=== PATIENT | female | born 1975 | race Caucasian/White ===

== ENCOUNTER → 2019-08-20 06:53 | Outpatient (CLI) | payer OTHER, SELFPAY ==
--- NOTE | 2019-08-20 | DI.RAD.S_ITS ---
PROCEDURE: XR CERVICAL SPINE 2V OR 3V INDICATIONS: NECK PAIN TECHNIQUE: 3 view(s) of the cervical spine were acquired. COMPARISON: [facility], CR, XR THORACIC SPINE 2V, 08/20/2019, 7:57. FINDINGS: Bones: No fractures or dislocations to the T1 level. The lateral masses of C1 appear intact on the odontoid view. No suspicious bony lesions. There is mild degenerative disc disease at C5-6 with small anterior and posterior projecting osteophytes, without subluxation. Soft tissues: No prevertebral soft tissue swelling. IMPRESSION: C5-6 mild degenerative disc disease without definite spinal or foraminal stenosis associated. Dictated by: Juan C Cooper M.D. on 08/20/2019 at 10:00 Approved by: Juan C Cooper M.D. on 08/20/2019 at 10:00
--- NOTE | 2019-08-20 | DI.ECHO.S_ITS ---
[place] +---------+ Hospital +---------+ : : [address] : : : : [id number] : : : : Phone: [phone]---------+ Echocardiogram Report + + :Name: BRANDON GONZÁLES Study Date: 08/20/2019 Height: 65 in : :[facility] Weight: 135 lb : : Gender: Female BSA: 1.7 m2 : :: 1975 Age: 44 yrs BP: 126/78 mmHg: :Reason For Study: PVC : :Ordering Physician: Dr. Zamora : :Samuel Performed By: Raymundo Neville : :Referring: GEORGE BUENROSTRO : + + Interpretation Summary The left ventricle is normal in size. Left ventricular systolic function is borderline reduced. The ejection fraction is estimated to be 45-50%. Left ventricular wall motion is normal. Diastolic parameters suggest probable normal left ventricular diastolic function and normal filling pressures. The right ventricle is normal in size and function. The right ventricular systolic pressure is estimated to be at least 30 mmHg based on an estimated right atrial pressure of 8 mm Hg. The left atrium is mildly dilated. The right atrium is mildly dilated. There is no significant valvular heart disease. The aortic root is normal size. Procedure: A two-dimensional transthoracic echocardiogram with color flow and Doppler was performed. The study quality was technically adequate. There is no prior echocardiogram noted for this patient. Left Ventricle: The left ventricle is normal in size. There is normal left ventricular wall thickness. Left ventricular systolic function is borderline reduced. The ejection fraction is estimated to be 45-50%. Left ventricular wall motion is normal. Diastolic parameters suggest probable normal left ventricular diastolic function and normal filling pressures. Right Ventricle: The right ventricle is normal in size and function. Atria: The left atrium is mildly dilated. The right atrium is mildly dilated. The interatrial septum is intact with no evidence for an atrial septal defect. Mitral Valve: The mitral valve is normal in structure and function. There is trace mitral regurgitation. Aortic Valve: The aortic valve is trileaflet. The aortic valve opens well. No aortic regurgitation is present. Tricuspid Valve: The tricuspid valve is normal in structure and function. There is trace tricuspid regurgitation. The right ventricular systolic pressure is estimated to be at least 30 mmHg based on an estimated right atrial pressure of 8 mm Hg. Pulmonic Valve: The pulmonic valve is normal in structure and function. There is trace pulmonic regurgitation. There is no significant valvular heart disease. Great Vessels: The aortic root is normal size. The dimensions of the ascending aorta are normal. The pulmonary artery is normal size. The IVC is dilated (diameter is greater than 2.1 cm) yet it collapses greater than 50% with a sniff. This suggests a right atrial pressure of 8 mm Hg. Pericardium/ Pleura There is no pericardial effusion. There is no pleural effusion. MMode/2D Measurements & Calculations LVIDd: 5.0 cm LVOT diam: 1.9 cm LVIDs: 3.7 cm Ao root diam: 2.6 cm FS: 25.8 % Aortic Jxn: 2.4 cm EPSS: 0.43 cm Ao Arch Diam (Prox Trans): 2.3 cm IVSd: 0.79 cm LVPWd: 1.0 cm LV ibrahim. diameter/BSA (cm/m^2): 3.0 LV sys. diameter/BSA (cm/m^2): 2.2 LA A2 area: 18.0 cm2 RA long axis: 4.9 cm LA A4 area: 17.5 cm2 RA area: 15.2 cm2 LA length (vol): 4.6 cm RA vol: 39.8 ml LA vol: 58.7 ml RA : 23.8 ml/m2 LA vol index: 35.1 ml/m2 IVC diam: 2.7 cm Doppler Measurements & Calculations Ao V2 max: 121.1 cm/sec LVOT Max Adria: 93.1 cm/sec Ao V2 mean: 88.3 cm/sec LV V1 max P.5 mmHg Ao max P.9 mmHg LV V1 VTI: 22.3 cm Ao mean P.4 mmHg MARQUIS(I,D): 2.2 cm2 Ao V2 VTI: 27.9 cm MARQUIS(V,D): 2.1 cm2 sev ratio: 0.80 MARQUIS indexed to BSA (cm^2/m^2): 1.3 MV E max adria: 69.7 cm/sec TR max adria: 228.3 cm/sec MV A max adria: 41.4 cm/sec TR max P.9 mmHg MV E/A: 1.7 PA V2 max: 68.7 cm/sec Med Peak E' Adria: 13.5 cm/sec PA V2 mean: 46.3 cm/sec E/E' med: 5.2 PA mean P.00 mmHg Lat Peak E' Adria: 15.4 cm/sec PA Accel Time: 0.16 sec E/E' lat: 4.5 E/e' average: 4.8 MV dec time: 0.25 sec SV(LVOT): 60.9 ml Reading Physician:08:55 AM
--- NOTE | 2019-08-20 | DI.RAD.S_ITS ---
PROCEDURE: XR THORACIC SPINE 2V INDICATIONS: NECK PAIN TECHNIQUE: 2 views of the thoracic spine were acquired. COMPARISON: [facility], CR, XR CERVICAL SPINE 2V OR 3V, 08/20/2019, 7:57. FINDINGS: Bones: No fractures or dislocations. No suspicious bony lesions. 12 pairs of ribs are noted, and appear intact where visualized. Soft tissues: No paravertebral stripe thickening. IMPRESSION: Normal for age, source of pain is not seen. Dictated by: JuanC Cooper M.D. on 08/20/2019 at 10:01 Approved by: Juan C Cooper M.D. on 08/20/2019 at 10:01
== END ==
PROVIDERS: PCP Family Medicine; Visit Provider Family Medicine
DX: I49.3 Ventricular premature depolarization (principal); M50.322 Other cervical disc degeneration at C5-C6 level
CPT/HCPCS: 72040; 72070; 93306

== ENCOUNTER → 2019-09-13 09:23 | Outpatient (CLI) | payer OTHER, SELFPAY ==
--- NOTE | 2019-10-05 16:01 | PM.CARDMON.1 ---
[employer] Report Referral & Results Date Patient Seen: 09/13/19 Requesting provider: Sera Baker Indication: Palpitations Duration of monitoring (days): 14 Diary information: There were 44 patient triggered events and 16 patient diary entries. All of these events were associated variably with sinus rhythm, PACs, PVCs, and ventricular trigeminy Data: Minimum heart rate identified was 39 beats per minute at 07:24 on 09/14/2019 Maximum heart rate was 182 beats per minute at 12:39 on 09/23/2019 Less than 1% of identified beats were supraventricular ectopic in origin Approximately 7.9% of identified beats were ventricular ectopic in origin or PVCs. This included a 3 minutes 12nd run of ventricular trigeminy Patient had 1 run of supraventricular tachycardia/atrial tachycardia that lasted 7 beats Impression: Patient with frequent PVCs including runs of ventricular trigeminy and more rarely ventricular bigeminy as above. This may well be source of patient's symptoms No other significant dysrhythmias identified on this study
== END ==
PROVIDERS: Family Provider Family Medicine; PCP Family Medicine; Referring Provider Family Medicine; Visit Provider Family Medicine
DX: R00.2 Palpitations (principal)
CPT/HCPCS: 0296T; 0298T

== ENCOUNTER → 2020-07-22 15:52 | Outpatient (CLI) | payer OTHER, SELFPAY ==
--- NOTE | 2020-07-22 | DI.ECHO.S_ITS ---
[place] +---------+ Hospital +---------+ : : [address] : : : : [id number] : : : : Phone: [phone]---------+ Echocardiogram Report + + :Name: BRANDON GONZÁLES Study Date: 07/22/2020 Height: 65 in : :[facility] Weight: 140 lb : : Gender: Female BSA: 1.7 m2 : :: 1975 Age: 45 yrs BP: 135/87 mmHg: :Reason For Study: CARDIOMYOPATHY : :Ordering Physician: PORTER, : :GEORGE Performed By: Araceli Chun : :Referring: GEORGE BUENROSTRO : + + Interpretation Summary 1) Normal left ventricular thickness and size with low normal systolic function (EF 50-55%). 2) Normal right ventricular size and function. 3) No significant valvular abnormalities. 4) Compared to the Echo done 08/20/2019, LVEF has improved from 45-50% to 50- 55% on this study. Procedure: A two-dimensional transthoracic echocardiogram with color flow and Doppler was performed. The study quality was technically adequate. Comparison is made with the echocardiogram of 08/20/2019. The patient was in sinus rhythm with heart rates between 54-76 bpm during the exam. The patient had occasional PVCs during the exam. Left Ventricle: The left ventricle is normal in size and wall thickness. The ejection fraction is estimated to be 50-55%. Left ventricular systolic function is low normal. There are no focal wall motion abnormalities. Diastolic parameters suggest probable normal left ventricular diastolic function and normal filling pressures. Right Ventricle: The right ventricle is normal in size and function. Atria: The left atrium is mildly dilated. Right atrial size is normal. There is no Doppler evidence for an interatrial shunt. Mitral Valve: The mitral valve is normal in structure and function. There is trace mitral regurgitation. Aortic Valve: The aortic valve is trileaflet. The aortic valve opens well. There is no aortic valve stenosis. No aortic regurgitation is present. Tricuspid Valve: The tricuspid valve is normal in structure and function. There is trace tricuspid regurgitation. The right ventricular systolic pressure is estimated to be at least 29 mmHg based on an estimated right atrial pressure of 8 mm Hg. Pulmonic Valve: The pulmonic valve leaflets are thin and pliable; valve motion is normal. There is trace pulmonic regurgitation. Great Vessels: The aortic root is normal size. The dimensions of the ascending aorta are normal. The IVC is dilated (diameter is greater than 2.1 cm) yet it collapses greater than 50% with a sniff. This suggests a right atrial pressure of 8 mm Hg. Pericardium/ Pleura There is no pericardial effusion. There is no pleural effusion. MMode/2D Measurements & Calculations LVIDd: 5.3 cm LVOT diam: 2.2 cm LVIDs: 3.8 cm Ao root diam: 2.7 cm FS: 28.9 % asc Aorta Diam: 2.9 cm EPSS: 0.18 cm IVSd: 0.71 cm LVPWd: 0.68 cm LV ibrahim. diameter/BSA (cm/m^2): 3.1 LV sys. diameter/BSA (cm/m^2): 2.2 LA A2 area: 18.8 cm2 RA long axis: 4.5 cm LA A4 area: 20.0 cm2 RA area: 13.9 cm2 LA length (vol): 5.3 cm RA vol: 36.6 ml LA vol: 60.3 ml RA : 21.5 ml/m2 LA vol index: 35.5 ml/m2 IVC diam: 2.6 cm RVD1 (basal): 3.3 cm TAPSE: 3.1 cm Doppler Measurements & Calculations Ao V2 max: 125.3 cm/sec LVOT Max Adria: 82.7 cm/sec Ao V2 mean: 88.5 cm/sec LV V1 max P.7 mmHg Ao max P.3 mmHg LV V1 VTI: 17.4 cm Ao mean P.5 mmHg MARQUIS(I,D): 2.5 cm2 Ao V2 VTI: 26.9 cm MARQUIS(V,D): 2.5 cm2 sev ratio: 0.65 MARQUIS indexed to BSA (cm^2/m^2): 1.4 MV E max adria: 77.3 cm/sec TR max adria: 227.3 cm/sec MV A max adria: 47.3 cm/sec TR max P.7 mmHg MV E/A: 1.6 PA V2 max: 73.7 cm/sec Med Peak E' Adria: 11.2 cm/sec PA V2 mean: 49.1 cm/sec E/E' med: 6.9 PA mean P.1 mmHg Lat Peak E' Adria: 15.5 cm/sec PA pr(Accel): 22.5 mmHg E/E' lat: 5.0 E/e' average: 5.9 MV dec time: 0.23 sec SV(LVOT): 66.2 ml Reading Physician:05:28 PM
== END ==
PROVIDERS: Family Provider Family Medicine; PCP Family Medicine; Referring Provider Family Medicine; Visit Provider Family Medicine
DX: I42.9 Cardiomyopathy, unspecified (principal)
CPT/HCPCS: 93306

== ENCOUNTER → 2022-05-12 07:53 | Outpatient (CLI) | payer OTHER, SELFPAY ==
--- NOTE | 2022-05-12 | DI.ECHO.S_ITS ---
[place] +---------+ Hospital +---------+ : : [address] : : : : [id number] : : : : Phone: [phone]---------+ Echocardiogram Report + + :Name: BRANDON GONZÁLES Study Date: 05/12/2022 Height: 65 in : :[facility] ReadingLocation: Weight: 150 lb : : Gender: Female BSA: 1.8 m2 : :: 1975 Age: 46 yrs BP: 104/70 mmHg: :Reason For Study: Cardiomyopathy : : Performed By: Araceli Chun : :Referring: GEORGE BUENROSTRO : + + Interpretation Summary The left ventricle is normal in size and wall thickness. Left ventricular systolic function appears normal without focal wall motion abnormalities. The ejection fraction is estimated to be 55-60%. LVEF has continued to improve since last echo study on 07/22/2020. Diastolic parameters suggest probable normal left ventricular diastolic function and normal filling pressures. The right ventricle is normal in size and function. The right ventricular systolic pressure is estimated to be at least 21 mmHg based on an estimated right atrial pressure of 3 mm Hg. The left atrial size is normal. Right atrial size is normal. There is mild mitral regurgitation. There is no other significant valvular heart disease. The aortic root is normal size. Procedure: A two-dimensional transthoracic echocardiogram with color flow and Doppler was performed. The study quality was technically adequate. Comparison is made with the echocardiogram of 07/22/2020. The patient was in sinus rhythm with heart rates between 58-67 bpm during the exam. Left Ventricle: The left ventricle is normal in size and wall thickness. Left ventricular systolic function appears normal without focal wall motion abnormalities. The ejection fraction is estimated to be 55-60%. Diastolic parameters suggest probable normal left ventricular diastolic function and normal filling pressures. Right Ventricle: The right ventricle is normal in size and function. Atria: The left atrial size is normal. Right atrial size is normal. There is no Doppler evidence for an interatrial shunt. Mitral Valve: The mitral valve is normal in structure and function. There is mild mitral regurgitation. Aortic Valve: The aortic valve is trileaflet. The aortic valve opens well. There is no aortic valve stenosis. No aortic regurgitation is present. Tricuspid Valve: The tricuspid valve is normal in structure and function. There is mild tricuspid regurgitation. The right ventricular systolic pressure is estimated to be at least 21 mmHg based on an estimated right atrial pressure of 3 mm Hg. Pulmonic Valve: The pulmonic valve leaflets are thin and pliable; valve motion is normal. There is trace pulmonic regurgitation. There is no other significant valvular heart disease. Great Vessels: The aortic root is normal size. The dimensions of the ascending aorta are normal. The IVC is of normal diameter and collapses greater than 50% with a sniff. This suggests a low right atrial pressure of 3 mm Hg. Pericardium/ Pleura There is no pericardial effusion. There is no pleural effusion. MMode/2D Measurements & Calculations LVIDd: 5.0 cm LVOT diam: 2.0 cm LVIDs: 3.3 cm Ao root diam: 2.6 cm FS: 33.0 % asc Aorta Diam: 2.8 cm IVSd: 0.79 cm Ao Arch Diam (Prox Trans): 2.5 cm LVPWd: 0.78 cm LV ibrahim. diameter/BSA (cm/m^2): 2.9 LV sys. diameter/BSA (cm/m^2): 1.9 LA A2 area: 18.9 cm2 RA long axis: 4.4 cm LA A4 area: 16.7 cm2 RA area: 15.6 cm2 LA length (vol): 5.4 cm RA vol: 47.1 ml LA vol: 49.7 ml RA : 26.9 ml/m2 LA vol index: 28.4 ml/m2 IVC diam: 1.5 cm RVD1 (basal): 3.7 cm TAPSE: 3.2 cm Doppler Measurements & Calculations Ao V2 max: 124.0 cm/sec LVOT Max Adria: 97.9 cm/sec Ao V2 mean: 85.6 cm/sec LV V1 max P.8 mmHg Ao max P.2 mmHg LV V1 VTI: 21.0 cm Ao mean P.3 mmHg MARQUIS(I,D): 2.4 cm2 Ao V2 VTI: 28.7 cm MARQUIS(V,D): 2.6 cm2 sev ratio: 0.73 MARQUIS indexed to BSA (cm^2/m^2): 1.4 MV E max adria: 82.8 cm/sec TR max adria: 215.8 cm/sec MV A max adria: 62.2 cm/sec TR max P.7 mmHg MV E/A: 1.3 PA V2 max: 95.3 cm/sec Med Peak E' Adria: 11.1 cm/sec PA V2 mean: 63.6 cm/sec E/E' med: 7.5 PA mean P.9 mmHg Lat Peak E' Adria: 13.1 cm/sec PA pr(Accel): 12.2 mmHg E/E' lat: 6.3 E/e' average: 6.9 MV dec time: 0.18 sec SV(LVOT): 67.8 ml Reading Physician:09:19 AM
== END ==
PROVIDERS: Family Provider Family Medicine; PCP Family Medicine; Referring Provider Family Medicine; Visit Provider Family Medicine
DX: I42.9 Cardiomyopathy, unspecified (principal); I08.1 Rheumatic disorders of both mitral and tricuspid valves
CPT/HCPCS: 93306

== ENCOUNTER → 2022-05-13 15:17 | Outpatient (CLI) | payer OTHER, SELFPAY ==
--- NOTE | 2022-06-02 10:08 | PM.CARDMON.1 ---
[employer] Report Referral & Results Date Patient Seen: 05/13/22 Requesting provider: Sera Baker Indication: Palpitations Duration of monitoring (days): 14 Diary information: There were 22 patient triggered events and 16 patient diary entries All of these patient events were variably associated with (within 45 seconds) sinus rhythm and PACs Data: Minimum heart rate identified was 44 beats per minute at 06:37 on 05/18/2022 Maximum heart rate was sinus and was 173 beats per minute at 19:23 on 05/22/2022 Less than 1% of identified beats were ventricular or supraventricular ectopic in origin, which would classify them as rare. There were 4 runs of SVT the fastest being the 4 beat run at a rate of 129 beats per minute which suggest more atrial tachycardia rather than true SVT. The longest was 6 beats in duration There were no pauses of 3 seconds or longer or episodes of atrial fibrillation identified on this study Impression: 14 day campus monitor demonstrating very rare very brief runs of SVT. Also demonstrating rare PACs and PVCs but based on patient events it appears patient's sense of palpitations may well be due to rare PACs. Clinical correlation suggested
== END ==
PROVIDERS: Family Provider Family Medicine; PCP Family Medicine; Referring Provider Family Medicine; Visit Provider Family Medicine
DX: R00.2 Palpitations (principal)
CPT/HCPCS: 93246; 93248

== ENCOUNTER → 2022-05-28 16:17 | Outpatient (CLI) | payer OTHER, SELFPAY ==
--- NOTE | 2022-05-28 16:19 | DI.MG.S_ITS ---
BILATERAL DIGITAL SCREENING MAMMOGRAM 3D/2D WITH CAD: 05/28/2022 CLINICAL: Routine screening. Baseline exam. No prior exams were available for comparison. Both breasts are heterogeneously dense, which may obscure small masses (category c / 51-75% glandular tissue). Current study was also evaluated with a Computer Aided Detection (CAD) system. No significant masses, calcifications, or other findings are seen in either breast. IMPRESSION: NEGATIVE There is no mammographic evidence of malignancy. A 1 year screening mammogram is recommended. This exam was interpreted at Station ID: [id number]. NOTE: For mammograms, a report in lay terms will be sent to the patient. Approximately 15% of breast malignancies will not be visualized mammographically. In the management of a palpable breast mass, a negative mammogram must not discourage biopsy of a clinically suspicious lesion. Electronically Signed By: Frank stephens/jeimy:05/28/2022 16:51:48 letter sent: Normal Exam ACR BI-RADS Category 1: Negative 3341F
== END ==
PROVIDERS: Family Provider Family Medicine; PCP Family Medicine; Referring Provider Family Medicine; Visit Provider Family Medicine
DX: Z12.31 Encounter for screening mammogram for malignant neoplasm of breast (principal)
CPT/HCPCS: 77063; 77067

== ENCOUNTER → 2023-07-01 11:12 | Outpatient (CLI) | payer OTHER, SELFPAY ==
--- NOTE | 2023-07-01 | DI.MG.S_ITS ---
BILATERAL DIGITAL SCREENING MAMMOGRAM 3D/2D WITH CAD: 07/01/2023 CLINICAL: Routine screening. Comparison is made to exam dated: 05/28/2022 mammogram - [facility]. Both breasts are heterogeneously dense, which may obscure small masses (category c / 51-75% glandular tissue). Current study was also evaluated with a Computer Aided Detection (CAD) system. No significant masses, calcifications, or other findings are seen in either breast. There has been no significant interval change. IMPRESSION: NEGATIVE There is no mammographic evidence of malignancy. A 1 year screening mammogram is recommended. Based on the Tyrer Cuzick model (a risk assessment model) the patient's lifetime risk is 15.4% and her 10 year risk is 3.3%. According to the ACR, ACS, and NCCN guidelines, an annual breast MRI exam along with mammogram is recommended if the patient's lifetime risk is 20% or greater. This exam was interpreted at Station ID: [id number]. NOTE: For mammograms, a report in lay terms will be sent to the patient. Approximately 15% of breast malignancies will not be visualized mammographically. In the management of a palpable breast mass, a negative mammogram must not discourage biopsy of a clinically suspicious lesion. Electronically Signed By: Che Richards M.D., PH.D cara/jeimy:07/02/2023 01:28:25 letter sent: Normal Exam ACR BI-RADS Category 1: Negative [id number]
== END ==
PROVIDERS: Family Provider Family Medicine; PCP Family Medicine; Referring Provider Family Medicine; Visit Provider Family Medicine
DX: Z12.31 Encounter for screening mammogram for malignant neoplasm of breast (principal)
CPT/HCPCS: 77063; 77067

== ENCOUNTER → 2023-07-08 10:24 | Outpatient (CLI) | payer OTHER, SELFPAY ==
--- NOTE | 2023-07-08 | DI.RAD.S_ITS ---
PROCEDURE: XR LUMBAR SPINE 2-3V INDICATIONS: PAIN TECHNIQUE: 3 views of the lumbar spine were acquired. COMPARISON: None. FINDINGS: Bones: 5 [id number] vertebrae are present. There is normal bony alignment. No vertebral body compression fractures. No suspicious bony lesions. Soft tissues: Overlying bowel gas pattern is normal. No suspicious soft tissue calcifications. IMPRESSION: No acute bony abnormality. Dictated by: Tripp Montes M.D. on 07/08/2023 at 12:19 Approved by: Tripp Montes M.D. on 07/08/2023 at 12:20
== END ==
PROVIDERS: Family Provider Family Medicine; PCP Family Medicine; Referring Provider Family Medicine; Visit Provider Family Medicine
DX: M54.50 Low back pain, unspecified (principal); M25.551 Pain in right hip
CPT/HCPCS: 72100

== ENCOUNTER → 2023-08-29 16:15 | Outpatient (CLI) | payer OTHER, SELFPAY ==
--- NOTE | 2023-08-29 | DI.ECHO.S_ITS ---
[place] +---------+ Hospital +---------+ : : [address] : : : : [id number] : : : : Phone: [phone] : [phone] +---------+ Echocardiogram Report + + :Name: BRANDON GONZÁLES Study Date: 08/29/2023 Height: 65 in : :[facility] ReadingLocation: Weight: 150 lb : : Gender: Female BSA: 1.8 m2 : :: 1975 Age: 48 yrs BP: 124/80 mmHg: :Reason For Study: NONRHEUMATIC MITRAL VALVE REGURGITATION : :Ordering Physician: PORTER, : :GEORGE Performed By: Chris Rodriguez : :Referring: GEORGE BUENROSTRO : + + Interpretation Summary 1) Normal left ventricular thickness, size, wall motion, and systolic function (EF 60-65%). 2) Normal right ventricular size and function. 3) There is trace mitral regurgitation. 4) Compared to the Echo done 05/12/2022, mitral regurgitation has decreased from mild to trace on this study. Procedure: A two-dimensional transthoracic echocardiogram with color flow and Doppler was performed. The study quality was technically adequate. Comparison is made with the echocardiogram of 05/12/22. The patient was in normal sinus rhythm during the exam. The heart rate ranged between 54-71 bpm during the study. Left Ventricle: The left ventricle is normal in size and wall thickness. The ejection fraction is estimated to be 60-65%. Left ventricular systolic function appears normal without focal wall motion abnormalities. Diastolic parameters suggest a relaxation abnormality of the left ventricle, consistent with probable normal filling pressures. Right Ventricle: The right ventricle is normal size. The right ventricular systolic function is normal. Atria: The left atrium is borderline dilated. Right atrial size is normal. Mitral Valve: The mitral valve is normal in structure and function. There is no mitral valve stenosis. There is trace mitral regurgitation. Aortic Valve: The aortic valve is trileaflet. There is no aortic valve stenosis. No aortic regurgitation is present. Tricuspid Valve: The tricuspid valve is normal in structure and function. There is no tricuspid stenosis. There is mild tricuspid regurgitation. The right ventricular systolic pressure is estimated to be at least 26 mmHg based on an estimated right atrial pressure of 3 mm Hg. Pulmonic Valve: The pulmonic valve is normal in structure and function. There is no pulmonic valvular stenosis. There is a trace or physiologic amount of pulmonic regurgitation. Great Vessels: The aortic root is normal size. The dimensions of the ascending aorta are normal. The IVC is of normal diameter and collapses greater than 50% with a sniff. This suggests a low right atrial pressure of 3 mm Hg. Pericardium/ Pleura There is no pericardial effusion. There is no pleural effusion. MMode/2D Measurements & Calculations LVIDd: 5.1 cm LVOT diam: 2.0 cm LVIDs: 3.2 cm Ao root diam: 2.6 cm FS: 36.9 % asc Aorta Diam: 3.0 cm IVSd: 0.79 cm Ao Arch Diam (Prox Trans): 2.3 cm LVPWd: 0.89 cm LV ibrahim. diameter/BSA (cm/m^2): 2.9 LV sys. diameter/BSA (cm/m^2): 1.8 LA A2 area: 18.7 cm2 RA long axis: 4.5 cm LA A4 area: 15.9 cm2 RA area: 13.6 cm2 LA length (vol): 4.7 cm RA vol: 34.6 ml LA vol: 53.2 ml RA : 19.8 ml/m2 LA vol index: 30.4 ml/m2 IVC diam: 1.8 cm RVD1 (basal): 3.3 cm RVD2 (mid): 2.9 cm TAPSE: 3.5 cm Doppler Measurements & Calculations Ao V2 max: 138.6 cm/sec LVOT Max Adria: 112.1 cm/sec Ao V2 mean: 99.8 cm/sec LV V1 max P.0 mmHg Ao max P.7 mmHg LV V1 VTI: 24.8 cm Ao mean P.4 mmHg MARQUIS(I,D): 2.5 cm2 Ao V2 VTI: 31.9 cm MARQUIS(V,D): 2.6 cm2 sev ratio: 0.78 MARQUIS indexed to BSA (cm^2/m^2): 1.4 MV E max adria: 70.8 cm/sec TR max adria: 240.1 cm/sec MV A max adria: 39.9 cm/sec TR max P.1 mmHg MV E/A: 1.8 PA V2 max: 131.5 cm/sec Med Peak E' Adria: 13.2 cm/sec PA V2 mean: 89.3 cm/sec E/E' med: 5.4 PA mean P.5 mmHg Lat Peak E' Adria: 18.6 cm/sec PA pr(Accel): 25.9 mmHg E/E' lat: 3.8 E/e' average: 4.6 MV dec time: 0.28 sec SV(OT): 80.0 ml Reading Physician:05:28 PM
== END ==
LOC: ECHO 16:16
PROVIDERS: Family Provider Family Medicine; PCP Family Medicine; Referring Provider Family Medicine; Visit Provider Family Medicine
DX: I42.9 Cardiomyopathy, unspecified (principal); I49.3 Ventricular premature depolarization; I34.0 Nonrheumatic mitral (valve) insufficiency
CPT/HCPCS: 93306

== ENCOUNTER 2023-11-03 13:23 | Day surgery (SDC) | payer OTHER, SELFPAY ==
--- NOTE | 2023-11-03 | PATH_ITS ---
[facility] Accession Number: [id number] No. of containers..02 Tissue . 01 Material submitted: . PART A: colon - TRANSVERSE POLYP PART B: sigmoid colon - SIGMOID POLYP . 01 Diagnosis: Part A: TRANSVERSE POLYP: Sessile serrated adenoma. . Part B: SIGMOID POLYP: Hyperplastic polyp. STO 11/10/2023 1356 Local . 01 Electronically signed: . Dharmesh Carmona MD, Pathologist NPI- [id number] . 01 Gross description: . Part A: TRANSVERSE POLYP: Received in formalin is 1 fragment(s) of toro, soft tissue measuring 1.1 x 0.5 x 0.4 cm submitted entirely in 1 cassette(s) . Part B: SIGMOID POLYP: Received in formalin is 1 fragment(s) of toro, soft tissue measuring 0.3 x 0.2 x 0.2 cm submitted entirely in 1 cassette(s) /MALCOM 11/10/2023 1356 Local . 01 Pathologist provided ICD-10: D12.3, K63.5 . 01 CPT . 108985, 468374 Specimen Comment: A courtesy copy of this report has been sent to [phone] Performed at: 01 [facility] [address] [place] [address] [address] [facility], [place], [place] [id number] MD Dharmesh Carmona MD Phone: [phone]
[2023-11-03 14:40] VITALS: BP 107/76; PULSE 84; RESP 16; TEMP 36.1; O2SAT 99
--- NOTE | 2023-11-03 14:44 | PM.HP.1 ---
History of Present Illness History of Present Illness Date Patient Seen: 11/03/23 Time Patient Seen: 14:44 Chief complaint: SDC Narrative: Chrystal is a 48-year-old woman who is here for colonoscopy. She has never had a colonoscopy before. No known family history of colon cancer. [facility] Medical History (Updated 11/03/23 @ 14:45 by Art Vega MD) Human papilloma virus (~1995) History of chlamydia (~2000) Surgical History (Updated 04/01/19 @ 15:25 by Mago Khan) Anesthesia History of tonsillectomy (~1992) Family History (Updated 04/01/19 @ 15:29 by Mago Khan) Father Suicide Mother Diabetes mellitus Hypertension Grandfather Cancer Grandmother Stroke Grandmother History of heart disease Social History Smoking Status: Former smoker Meds Home Medications and Allergies Home Medications Medication Instructions Recorded Confirmed Type escitalopram oxalate 20 mg tablet 20 mg PO DAILY 11/03/23 11/03/23 History Allergies Allergy/AdvReac Type Severity Reaction Status Date / Time No Known Drug Allergies Allergy Verified 11/03/23 14:33 Exam Vital Signs (past 8 hours): - 11/03/23 14:40 Temperature 96.9 F L Pulse Rate 84 Respiratory Rate 16 Blood Pressure 107/76 Pulse Oximetry 99 Oxygen Delivery Method Room Air Oxygen Delivery Method Room Air Const General: healthy appearing Resp Effort & Inspection: normal respiratory effort Neuro General: patient alert and patient awake Assessment & Plan Assessment and plan (1) Colon cancer screening: Status: Acute Plan We reviewed the risks and benefits of colonoscopy for colon cancer screening and she would like to proceed.
[2023-11-03] MEDS: LACTATED RINGERS 1,000 ML 42 ML IV (14:47)
--- NOTE | 2023-11-03 15:50 | PM.OP.COLON ---
Operative Date/Time/Diagnoses Date of procedure: 11/03/23 Time of procedure: 15:50 Pre-op diagnosis: Colon cancer screening Post-op diagnosis: same Procedure & Clinicians Study performed: Colonoscopy Same procedure as scheduled: Yes Surgeon: Art Vega Procedure Notes Procedure in detail: Surgeon: Art Vega MD Anesthesia: Tanisha Schwartz DO Procedure: The patient was brought to the endoscopy suite, placed in left lateral decubitus position. The patient was connected to monitoring devices. A time-out was performed. Sedation was administered. Once the patient was adequately sedated, a digital rectal exam was performed and was normal. The scope was then inserted and advanced to the cecum where the appendiceal orifice was identified and photographed. The scope was then slowly withdrawn over greater than 6 minutes. The mucosa was thoroughly inspected. There was a 5 mm polyp in the transverse colon removed with a cold snare. There was a 5 mm polyp in the sigmoid colon removed with the Jumbo forceps. The scope was retroflexed in the rectum. No other abnormalities were found. The scope was straightened and removed. The patient was awakened and brought to recovery. Scope withdrawal time: 15 minutes Sedation time: 26 minutes EBL: 5 mL Findings: 5 mm polyp in the transverse colon and 5 mm polyp in the sigmoid colon Post-procedure Disposition: PACU
[2023-11-03 15:55] VITALS: BP 111/58; PULSE 64; RESP 13; O2SAT 100
[2023-11-03 15:59] VITALS: BP 100/58; PULSE 71; RESP 15; TEMP 36.8; O2SAT 99
[2023-11-03 16:00] VITALS: BP 115/72; PULSE 60; RESP 12; O2SAT 100
[2023-11-03 16:06] VITALS: BP 117/71; PULSE 56; RESP 14; O2SAT 100
== END 2023-11-03 16:20 | disposition home or self-care (01) ==
PROVIDERS: Family Provider Family Medicine; PCP Family Medicine; Referring Provider Surgery; Visit Provider Surgery
PROC: 0DJD8ZZ Inspection of Lower Intestinal Tract, Via Natural or Artificial Opening Endoscopic (ICD-10-PCS; CPT 45378; principal; 2023-11-03 14:15)
DX: Z12.11 Encounter for screening for malignant neoplasm of colon (principal); K63.5 Polyp of colon
CPT/HCPCS: 45385; 45380; J2704

== ENCOUNTER → 2024-05-31 15:18 | Outpatient (CLI) | payer OTHER, SELFPAY ==
--- NOTE | 2024-05-31 15:19 | DI.MG.S_ITS ---
BILATERAL DIGITAL SCREENING MAMMOGRAM 3D/2D WITH CAD: 05/31/2024 CLINICAL: Routine screening. Comparison is made to exams dated: 07/01/2023 mammogram and 05/28/2022 mammogram - [facility]. The breasts are heterogeneously dense, which may obscure small masses (category c / 51-75% glandular tissue). Current study was also evaluated with a Computer Aided Detection (CAD) system. No significant masses, calcifications, or other findings are seen in either breast. There has been no significant interval change. IMPRESSION: NEGATIVE There is no mammographic evidence of malignancy. A 1 year screening mammogram is recommended. Based on the Tyrer Cuzick model (a risk assessment model) the patient's lifetime risk is 15.5% and her 10 year risk is 3.5%. According to the ACR, ACS, and NCCN guidelines, an annual breast MRI exam along with mammogram is recommended if the patient's lifetime risk is 20% or greater. This exam was interpreted at Station ID: [id number]. NOTE: For mammograms, a report in lay terms will be sent to the patient. Approximately 15% of breast malignancies will not be visualized mammographically. In the management of a palpable breast mass, a negative mammogram must not discourage biopsy of a clinically suspicious lesion. Electronically Signed By: Uche hammond/jeimy:06/01/2024 08:51:51 letter sent: Normal Exam ACR BI-RADS Category 1: Negative
== END ==
PROVIDERS: Family Provider Family Medicine; PCP Family Medicine; Referring Provider Family Medicine; Visit Provider Family Medicine
DX: Z12.31 Encounter for screening mammogram for malignant neoplasm of breast (principal); R92.333 Mammographic heterogeneous density, bilateral breasts
CPT/HCPCS: 77063; 77067

== ENCOUNTER → 2024-09-25 19:09 | Outpatient (CLI) | payer OTHER, SELFPAY ==
--- NOTE | 2024-09-25 19:11 | DI.MRI.S_ITS ---
PROCEDURE: MR LUMBAR SPINE WO CON INDICATIONS: CHRONIC RT SIDED LOW BACK PAIN W/O SCIATICA TECHNIQUE: Noncontrast sagittal T1 spin echo and T2 fast echo, sagittal STIR, and T2 fast spin echo through the lumbar spine. In cases with scoliosis, additional coronal T2 fast spin echo may be performed. COMPARISON: None. FINDINGS: Image quality: Excellent. Alignment and Curvature: There is normal bony alignment. Bone Marrow: Marrow is of normal overall signal. No acute vertebral body compression fractures. Spinal Cord: Conus medullaris terminates at the L1 level. Visualized cord demonstrates normal signal and size. Paraspinous Soft Tissues: No paravertebral masses. T12-L1: Normal appearance. L1-L2: Normal appearance. L2-L3: Normal appearance. L3-L4: Disc bulge and arthropathy. Mild central stenosis. No foraminal stenosis L4-L5: Arthropathy. No central stenosis. Moderate left and no right foraminal stenosis L5-S1: Arthropathy. 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 on 09/26/2024 at 17:04
== END ==
PROVIDERS: Family Provider Family Medicine; PCP Family Medicine; Referring Provider Family Medicine; Visit Provider Family Medicine
DX: M47.816 Spondylosis without myelopathy or radiculopathy, lumbar region (principal); M47.817 Spondylosis without myelopathy or radiculopathy, lumbosacral region; M48.061 Spinal stenosis, lumbar region without neurogenic claudication; M54.50 Low back pain, unspecified; G89.29 Other chronic pain
CPT/HCPCS: 72148

== ENCOUNTER → 2024-12-25 | Outpatient (CLI) | payer OTHER, SELFPAY ==
--- NOTE | 2024-12-25 09:50 | DI.RAD.S_ITS ---
PROCEDURE: XR SHOULDER LT MIN 2V INDICATIONS: SHOULDER TECHNIQUE: Three views of the left shoulder were acquired. COMPARISON: None. FINDINGS: Bones: There are no osseous abnormalities. Acromioclavicular and glenohumeral joints: Normal in width and alignment without arthritic change Soft tissues: No soft tissue swelling, calcification or mass. IMPRESSION: Normal shoulder Dictated by: Michael Leblanc M.D. on 12/26/2024 at 12:34 Approved by: Michael Leblanc M.D. on 12/26/2024 at 12:35
== END ==
PROVIDERS: Family Provider Family Medicine; PCP Family Medicine; Referring Provider Family Medicine; Visit Provider Family Medicine
DX: M75.42 Impingement syndrome of left shoulder (principal); M75.82 Other shoulder lesions, left shoulder
CPT/HCPCS: 73030

== ENCOUNTER → 2025-06-12 | Outpatient (CLI) | payer OTHER, SELFPAY ==
--- NOTE | 2025-06-12 13:58 | DI.MG.S_ITS ---
MM screening mammo BI: 06/12/2025. BI-RADS: 1 CLINICAL: 50-year old female for bilateral screening mammogram. Tyrer-Cuzick lifetime risk of 10.6%. No personal or first-degree family history of breast cancer. PRIOR EXAMS 05/31/2024, 07/01/2023, 05/28/2022. MAMMOGRAPHY TECHNIQUE: 2D and 3D (tomosynthesis) digital mammographic views obtained, with additional images as needed for full coverage. Current study was also evaluated with a Computer Aided Detection (CAD) system. DENSITY C. The breasts are heterogeneously dense, which may obscure small masses. MAMMOGRAPHY FINDINGS Bilateral: No suspicious mass, asymmetry, microcalcification, or other abnormality seen. IMPRESSION: * No evidence of malignancy. RECOMMENDATIONS Bilateral * Annual screening mammography. OVERALL ASSESSMENT CATEGORY BI-RADS-1: Negative. The [employer] recommends annual screening mammography beginning at age 40 for women with average risk of breast cancer. ELECTRONICALLY SIGNED: Uche Bronson M.D. on 06/28/2025 at 03:39:44 PM PT Interpreting Station ID: [id number]
== END ==
LOC: MAMMO 13:57
PROVIDERS: Family Provider Family Medicine; PCP Family Medicine; Referring Provider Family Medicine; Visit Provider Family Medicine
DX: Z12.31 Encounter for screening mammogram for malignant neoplasm of breast (principal); R92.333 Mammographic heterogeneous density, bilateral breasts
CPT/HCPCS: 77063; 77067